=== PATIENT | male | born 1995 | race Caucasian/White ===

== ENCOUNTER 2016-12-27 16:14 | Observation (INO) | payer SELFPAY ==
[~2016-12-27] VITALS: Ht 188 cm; Wt 88.0 kg
[~2016-12-27 16:14] MED LIST: PROPOFOL 200 MG/20 ML AMP IV ONE
[2016-12-27 16:15] VITALS: BP 121/71; PULSE 117; RESP 15; TEMP 98.5; O2SAT 98
[2016-12-27 16:24] VITALS: PULSE 114; O2SAT 97
--- NOTE | 2016-12-27 17:52 | PD ---
HPI Chief Complaint: GI Complaint Time Seen by Provider: 17:39 Travel History International Travel<30 days: No Contact w/Intl Traveler<30days: No Traveled to known affect area: No History of Present Illness HPI This patient complains of inability to keep any food or liquid down for 3 days. Vomiting is intractable if he eats or drinks something. Between spells of eating or drinking he is not vomiting. He does have some a slight nausea and has some discomfort at the bottom of his esophagus. He is not sure specifically if he choked on some food and got it stuck. He has no diarrhea or abdominal pain. No medical history. Symptoms severity is moderate. No alleviating factors. PFSH Past Medical History Medical History: Denies Significant Hx Diminished Hearing: No Tetanus Vaccination: > 5 Years ?: Not Past Surgical History Tonsillectomy: Yes Social History Alcohol Use: No Tobacco Use: No Substance Use: No Allergies-Medications (Allergen,Severity, Reaction): Coded Allergies: azithromycin (Verified Allergy, Severe, Anaphylaxis, 12/27/16) Review of Systems General / Constitutional: No: Fever Eyes: No: Visual changes HENT: No: Headaches Cardiovascular: No: Chest Pain or Discomfort Respiratory: No: Shortness of Breath Gastrointestinal: Positive: Nausea, Vomiting, Dysphagia, No: Abdominal Pain Genitourinary: No: Dysuria Musculoskeletal: No: Pain Skin: No Rash Neurologic: No: Weakness Psychiatric: No: Depression Endocrine: No: Polydipsia Hematologic/Lymphatic: No: Easy Bruising Physical Exam Narrative GENERAL: Well-nourished, well-developed patient in no apparent distress. SKIN: Focused skin assessment reveals no rash and nodules. Skin is Warm and dry. HEAD: Atraumatic. Normocephalic. EYES: Pupils equal and round. No scleral icterus. No injection or drainage. ENT: No nasal bleeding or discharge. Mucous membranes pink and moist. NECK: Trachea midline. No JVD. CARDIOVASCULAR: Regular rate and rhythm. No murmur appreciated. RESPIRATORY: No accessory muscle use. Clear to auscultation. Breath sounds equal bilaterally. GASTROINTESTINAL: Abdomen soft, non-tender, nondistended. Hepatic and splenic margins not palpable. MUSCULOSKELETAL: No obvious deformities. No clubbing. No cyanosis. No edema. NEUROLOGICAL: Awake and alert. No obvious cranial nerve deficits. Motor grossly within normal limits. Normal speech. PSYCHIATRIC: Appropriate mood and affect; insight and judgment normal. Data Data Last Documented VS Vital Signs Date Time Temp Pulse Resp B/P (MAP) Pulse Ox O2 Delivery O2 Flow Rate FiO2 12/27/16 16:24 114 97 12/27/16 16:15 98.5 15 121/71 (88) Orders Orders Iv Access Insert/Monitor (12/27/16 17:50) Complete Blood Count With Diff (12/27/16 17:50) Basic Metabolic Panel (Bmp) (12/27/16 17:50) Sodium Chlor 0.9% 1000 Ml Inj (Ns 1000 M (12/27/16 18:00) Glucagon Inj (Glucagon Inj) (12/27/16 18:00) Chest, Single Ap (12/27/16 ) Abdomen, Flat & Upright (12/27/16 ) Diet Npo (12/27/16 Dinner) Consent (12/27/16 18:20) Admit Order (Ed Use Only) (12/27/16 19:15) Consult Gastroenterology (12/27/16 ) Labs Laboratory Tests Test 12/27/16 18:00 White Blood Count 6.6 TH/MM3 Red Blood Count 5.23 MIL/MM3 Hemoglobin 15.2 GM/DL Hematocrit 44.7 % Mean Corpuscular Volume 85.4 FL Mean Corpuscular Hemoglobin 29.1 PG Mean Corpuscular Hemoglobin Concent 34.0 % Red Cell Distribution Width 12.6 % Platelet Count 212 TH/MM3 Mean Platelet Volume 7.4 FL Neutrophils (%) (Auto) 65.0 % Lymphocytes (%) (Auto) 22.9 % Monocytes (%) (Auto) 9.1 % Eosinophils (%) (Auto) 2.1 % Basophils (%) (Auto) 0.9 % Neutrophils # (Auto) 4.3 TH/MM3 Lymphocytes # (Auto) 1.5 TH/MM3 Monocytes # (Auto) 0.6 TH/MM3 Eosinophils # (Auto) 0.1 TH/MM3 Basophils # (Auto) 0.1 TH/MM3 CBC Comment DIFF FINAL Differential Comment Blood Urea Nitrogen 18 MG/DL Creatinine 1.06 MG/DL Random Glucose 79 MG/DL Calcium Level 10.0 MG/DL Sodium Level 141 MEQ/L Potassium Level 3.7 MEQ/L Chloride Level 105 MEQ/L Carbon Dioxide Level 29.1 MEQ/L Anion Gap 7 MEQ/L Estimat Glomerular Filtration Rate 87 ML/MIN MDM Medical Decision Making Medical Screen Exam Complete: Yes Emergency Medical Condition: Yes Medical Record Reviewed: Yes Differential Diagnosis Esophageal obstruction, esophageal stricture, impacted food bolus Narrative Course I have reviewed the patient's electronic medical record. IV placed I gave him 1 mg IV glucose and but did not help CBC normal Metabolic profile normal I gave him a trial of drinking water here in the ER and even a quarter cup immediately vomited up multiple times. He appears to truly not be up to keep anything down at all. Seems to have acute esophageal obstruction I called and discussed with GI travel consultant Dr. Dave. She recommended I do x- rays of chest abdomen and pelvis and admit to the hospitalist and she will be a travel consultant and do endoscopy. She did not want to do on an emergent basis from the ER. I did call and discussed with hospitalist Dr. Chatman. She is going to discuss with the GI specialist to iron out the timing of this endoscopy. Diagnosis Primary Impression: Acute esophageal obstruction Additional Impression: Dysphagia Qualified Codes: R13.10 - Dysphagia, unspecified Admitting Information Admitting Physician Requests: Admit Joey Manuel MD Dec 27, 2016 17:52
[2016-12-27] MEDS ORDERED: GLUCAGON 1 MG/ML VIAL IV PUSH ONE (18:00)
[2016-12-27] MEDS ORDERED: SODIUM CHLOR 0.9% 1000 ML INJ 1,000 ML IV ONE (18:00)
--- NOTE | 2016-12-27 18:31 | RADRPT ---
EXAM DATE/TIME: 12/27/2016 18:24 [facility] COMPARISON: No previous studies available for comparison. INDICATIONS : Nausea and vomiting- abdominal pressure. MEDICAL HISTORY : None. SURGICAL HISTORY : None. ENCOUNTER: Initial ACUITY: 3 days PAIN SCORE: 0/10 LOCATION: Bilateral chest FINDINGS: A single view of the chest demonstrates the lungs to be symmetrically aerated without evidence of mas s, infiltrate or effusion. The cardiomediastinal contours are unremarkable. Osseous structures are intact. CONCLUSION: No acute disease. Lonnie Munoz MD on December 27, 2016 at 18:29 Board Certified Radiologist. This report was verified electronically.
--- NOTE | 2016-12-27 18:40 | RADRPT ---
EXAM DATE/TIME: 12/27/2016 18:19 [facility] COMPARISON: No previous studies available for comparison. INDICATIONS : Nausea and vomiting- Abdominal pressure. MEDICAL HISTORY : None. SURGICAL HISTORY : None. ENCOUNTER: Initial ACUITY: 3 days PAIN SCORE: 0/10 LOCATION: Abdomen. FINDINGS: Supine and upright views of the abdomen were performed. The abdominal bowel gas pattern is normal. No air fluid levels are seen. No abnormal masses, calcifications, or organomegaly is seen. The visu alized lower lungs are clear. No evidence of free intraperitoneal gas. The osseous structures are u nremarkable. CONCLUSION: Unremarkable abdomen. Lonnie Munoz MD on December 27, 2016 at 18:37 Board Certified Radiologist. This report was verified electronically.
[2016-12-27 18:52] LABS: AUTOMATED NEUTROPHIL # 4.3 TH/MM3 (1.8-7.7); BASOPHIL # 0.1 TH/MM3 (0-0.2); BASOPHIL % 0.9 % (0.0-2.0); EOSINOPHIL # 0.1 TH/MM3 (0-0.4); EOSINOPHIL % 2.1 % (0.0-4.0); HEMATOCRIT 44.7 % (39.0-51.0); HEMO FLAGS DIFF FINAL; LYMPH % 22.9 % (9.0-44.0); LYMPHOCYTE # 1.5 TH/MM3 (1.0-4.8); MEAN CELL VOLUME 85.4 FL (80.0-100.0); MEAN CORPUSCULAR HEMOGLOBIN 29.1 PG (27.0-34.0); MONO % 9.1 % (0.0-8.0); PLATELET COUNT 212 TH/MM3 (150-450); RED BLOOD COUNT 5.23 MIL/MM3 (4.50-5.90); RED CELL DISTRIBUTION WIDTH 12.6 % (11.6-17.2); WHITE BLOOD COUNT 6.6 TH/MM3 (4.0-11.0)
[2016-12-27 19:14] LABS: BICARBONATE 29.1 MEQ/L (21.0-32.0); POTASSIUM 3.7 MEQ/L (3.5-5.1)
[2016-12-27 19:45] VITALS: BP 115/77; PULSE 84; RESP 16; O2SAT 100
[2016-12-27] MEDS ORDERED: SODIUM CHLORIDE 0.9% FLUSH 10 ML FLUSH IV FLUSH PRN (20:45)
[2016-12-27] MEDS ORDERED: NALOXONE HCL 0.4 MG/ML AMP IV PRN (20:45)
[2016-12-27] MEDS ORDERED: ONDANSETRON HCL 4 MG/2 ML VIAL IV PUSH PRN (21:00)
[2016-12-27 21:12] LABS: INDIRECT BILIRUBIN 0.7 MG/DL (0.0-0.8); TOTAL BILIRUBIN ADULT 0.9 MG/DL (0.2-1.0)
[2016-12-27] MEDS: PANTOPRAZOLE SODIUM 40 MG VIAL IV PUSH SCH (22:00)
[2016-12-27] MEDS: SODIUM CHLORIDE 0.9% FLUSH 10 ML FLUSH IV FLUSH SCH (22:00)
[2016-12-27 22:45] VITALS: BP 128/78; PULSE 75; RESP 18; TEMP 98.5; O2SAT 98
[2016-12-27 23:39] VITALS: PULSE 84
[2016-12-28] VITALS (11 sets, daily range): BP systolic 111–123; BP diastolic 57–76; PULSE 67–96; RESP 17–18; TEMP 97.6–98.4; O2SAT 96–99
--- NOTE | 2016-12-28 03:31 | HHI.HP ---
[facility] No Primary Care Physician Admission Diagnosis acute esophageal obstruction Diagnoses: Travel History International Travel<30 Days: No Contact w/Intl Traveler <30 Da: No Traveled to Known Affected Are: No History of Present Illness History the patient with his mom at the bedside, ER physician communication, and review of medical records. Patient reported that he came to the hospital because he was having 2-3 days history of difficulty swallowing food. He reports that he does have a sore throat. He reports difficulty is for both solids and liquids. Denies fever. Denies any nausea or vomiting or diarrhea.. He states the food just comes up soon after he tried to ingested. He denies any blood in his stool or in his urine. Denies abdominal pains. Patient reports of associated lymph node swelling in his neck. Also reports that about 2 weeks ago, he has had sinus infection which he described as pain on palpation of his maxillary and frontal sinuses, and also had fever at that time. Also remembers that about 5 days ago, he thinks that his teeth fillings had come out. But did not ingest any of the fillings. States about 6 weeks ago, he has had some chest pain and heart ashley when he swallowed food. But it resolved within 1 or 2 days. Patient was also noted to have some rash in his right medial face. When asked about that, he stated that this rash came all of a sudden in the past 3 days. Reports it is not painful nor periodic. Mom stated that he has had similar lesions at his back about 6 days ago. This rash was pretty much all across his back, nontender, and nonvesicular. But was periodic though. Apart from the above, patient denies any other constitutional symptoms. Review of Systems Except as stated in HPI: all other systems reviewed are Neg Past Family Social History Past Medical History none Past Surgical History tonsilectomy Allergies: Coded Allergies: azithromycin (Verified Allergy, Severe, Anaphylaxis, 12/27/16) peanut (Verified Allergy, Unknown, 12/27/16) Family History father- colon cancer at 39yo Social History no smoking/ etoh abuse/ drug abuse Physical Exam Vital Signs Vital Signs Date Time Temp Pulse Resp B/P (MAP) Pulse Ox O2 Delivery O2 Flow Rate FiO2 12/27/16 22:47 12/27/16 22:45 98.5 75 18 128/78 (95) 98 12/27/16 19:45 84 16 115/77 (90) 100 Room Air 12/27/16 16:24 114 97 12/27/16 16:15 98.5 117 15 121/71 (88) 98 Physical Exam GENERAL: This is a well-nourished, well-developed patient, in no apparent distress. SKIN: No rashes, ecchymoses or lesions. Cool and dry. HEAD: Atraumatic. Normocephalic. No temporal or scalp tenderness. EYES: . No scleral icterus. No injection or drainage. ENT: Nose without bleeding, purulent drainage or septal hematoma. Throat without erythema, tonsillar hypertrophy or exudate. Uvula midline. Airway patent. NECK: Trachea midline. No JVD. right submandibular lymphadenopathy. Supple, nontender, no meningeal signs. CARDIOVASCULAR: Regular rate and rhythm without murmurs, gallops, or rubs. RESPIRATORY: Clear to auscultation. Breath sounds equal bilaterally. No wheezes , rales, or rhonchi. GASTROINTESTINAL: Abdomen soft, non-tender, nondistended. No guarding. MUSCULOSKELETAL: Extremities without clubbing, cyanosis, or edema. No calf tenderness. NEUROLOGICAL: Awake and alert.Motor and sensory grossly within normal limits. Normal speech. Laboratory Laboratory Tests Test 12/27/16 18:00 White Blood Count 6.6 Red Blood Count 5.23 Hemoglobin 15.2 Hematocrit 44.7 Mean Corpuscular Volume 85.4 Mean Corpuscular Hemoglobin 29.1 Mean Corpuscular Hemoglobin Concent 34.0 Red Cell Distribution Width 12.6 Platelet Count 212 Mean Platelet Volume 7.4 Neutrophils (%) (Auto) 65.0 Lymphocytes (%) (Auto) 22.9 Monocytes (%) (Auto) 9.1 Eosinophils (%) (Auto) 2.1 Basophils (%) (Auto) 0.9 Neutrophils # (Auto) 4.3 Lymphocytes # (Auto) 1.5 Monocytes # (Auto) 0.6 Eosinophils # (Auto) 0.1 Basophils # (Auto) 0.1 CBC Comment DIFF FINAL Differential Comment Blood Urea Nitrogen 18 Creatinine 1.06 Random Glucose 79 Calcium Level 10.0 Sodium Level 141 Potassium Level 3.7 Chloride Level 105 Carbon Dioxide Level 29.1 Anion Gap 7 Estimat Glomerular Filtration Rate 87 Total Bilirubin 0.9 Direct Bilirubin 0.2 Indirect Bilirubin 0.7 Aspartate Amino Transf (AST/SGOT) 13 Alanine Aminotransferase (ALT/SGPT) 23 Alkaline Phosphatase 60 Total Protein 7.7 Albumin 4.6 Result Diagram: 12/27/16 1800 12/27/16 1800 Imaging Last [address] 12/28/16 0000 Signed Impressions: Service Date/Time: Wednesday, December 28, 2016 03:52 - CONCLUSION: 1. Borderline enlarged right submandibular lymph node. No abnormal fluid collections to suggest abscess. No airway obstructing lesions or foreign bodies. Tree Fabian MD Chest X-Ray 12/27/16 0000 Signed Impressions: Service Date/Time: Tuesday, December 27, 2016 18:24 - CONCLUSION: No acute disease. Lonnie Munoz MD Abdomen X-Ray 12/27/16 0000 Signed Impressions: Service Date/Time: Tuesday, December 27, 2016 18:19 - CONCLUSION: Unremarkable abdomen. Lonnie Munoz MD Capkasiei VTE Risk Assessment Caprini VTE Risk Assessment: Mod/High Risk (score >= 2) Caprini Risk Assessment Model Point Value = 1 Point Value = 2 Point Value = 3 Point Value = 5 Age 41-60 Minor surgery BMI > 25 kg/m2 Swollen legs Varicose veins or History of unexplained or recurrent spontaneous Oral contraceptives or hormone replacement Sepsis (< 1 month) Serious lung disease, including pneumonia (< 1 month) Abnormal pulmonary function Acute myocardial infarction Congestive heart failure (< 1 month) History of inflammatory bowel disease Medical patient at bed rest Age 61-74 Arthroscopic surgery Major open surgery (> 45 min) Laparoscopic surgery (> 45 min) Malignancy Confined to bed (> 72 hours) Immobilizing plaster cast Central venous access Age >= 75 History of VTE Family history of VTE Factor V Leiden Prothrombin [id number] Lupus anticoagulant Anticardiolipin antibodies Elevated serum homocysteine Heparin-induced thrombocytopenia Other congenital or acquired thrombophilia Stroke (< 1 month) Elective arthroplasty Hip, pelvis, or leg fracture Acute spinal cord injury (< 1 month) Prophylaxis Regimen Total Risk Factor Score Risk Level Prophylaxis Regimen 0-1 Low Early ambulation 2 Moderate Order ONE of the following: *Sequential Compression Device (SCD) *Heparin 5000 units SQ BID 3-4 Higher Order ONE of the following medications: *Heparin 5000 units SQ TID *Enoxaparin/Lovenox 40 mg SQ daily (WT < 150 kg, CrCl > 30 mL/min) *Enoxaparin/Lovenox 30 mg SQ daily (WT < 150 kg, CrCl > 10-29 mL/min) *Enoxaparin/Lovenox 30 mg SQ BID (WT < 150 kg, CrCl > 30 mL/min) AND/OR *Sequential Compression Device (SCD) 5 or more Highest Order ONE of the following medications: *Heparin 5000 units SQ TID (Preferred with Epidurals) *Enoxaparin/Lovenox 40 mg SQ daily (WT < 150 kg, CrCl > 30 mL/min) *Enoxaparin/Lovenox 30 mg SQ daily (WT < 150 kg, CrCl > 10-29 mL/min) *Enoxaparin/Lovenox 30 mg SQ BID (WT < 150 kg, CrCl > 30 mL/min) AND *Sequential Compression Device (SCD) Assessment and Plan Problem List: (1) Dysphagia ICD Code: R13.10 - Dysphagia, unspecified Status: Acute (2) Acute esophageal obstruction ICD Code: K22.2 - Esophageal obstruction Status: Acute Assessment and Plan Impression: Dysphagia/odynophagia Cervical lymphadenopathy Facial rash Family history of colon cancer in father who at 39 years old Plan: Patient was seen by GI specialist in the emergency room. He is planned for EGD in a.m. Patient denies any foreign body ingestion. He has had some teeth filling coming out about 5 days ago or so. Doubt that this is the reason S patient is a very good historian. But would need to make sure there is no foreign body sensation fragments. Monitor for fever trends. Obtain CT neck to rule out abscess collection. Chest x-ray Personally reviewed. No evidence of pneumothorax/pleural effusion/esme failure. Resume home meds. DVT prophylaxiswith ambulation/SCD. Discussed Condition With patient,ER Problem Qualifiers (1) Dysphagia: Qualified Codes: R13.10 - Dysphagia, unspecified Clare Chatman MD Dec 28, 2016 03:31
[2016-12-28] MEDS ORDERED: IOHEXOL 350 MG/ML 10 ML VIAL (for RAD DIAG) IVCONTRAST ONE (03:56)
--- NOTE | 2016-12-28 04:11 | RADRPT ---
EXAM DATE/TIME: 12/28/2016 03:52 [facility] COMPARISON: No previous studies available for comparison. INDICATIONS : Right neck swelling past 3 days. IV CONTRAST: 70 cc Omnipaque 350 (iohexol) IV RADIATION DOSE: 11.45 CTDIvol (mGy) MEDICAL HISTORY : Substance abuse SURGICAL HISTORY : Tonsillectomy. ENCOUNTER: Initial ACUITY: 3 days PAIN SCALE: 5/10 LOCATION: Right neck TECHNIQUE: Volumetric scanning of the neck was performed. Using automated exposure control and adjustment of th e mA and/or kV according to patient size, radiation dose was kept as low as reasonably achievable to obtain optimal diagnostic quality images. DICOM format image data is available electronically for r eview and comparison. FINDINGS: There is a borderline enlarged right submandibular lymph node. No abnormal fluid collections to sugge st abscess. No airway obstructing lesions or foreign bodies. Visualized paranasal sinuses are clear. Mastoid air cells are clear. No acute bony abnormalities. Lung apices are clear. Thyroid unremarkable. CONCLUSION: 1. Borderline enlarged right submandibular lymph node. No abnormal fluid collections to suggest absce ss. No airway obstructing lesions or foreign bodies. Tree Fabian MD on December 28, 2016 at 4:07 Board Certified Radiologist. This report was verified electronically.
[2016-12-28 07:37] LABS: AUTOMATED NEUTROPHIL # 2.8 TH/MM3 (1.8-7.7); BASOPHIL % 0.9 % (0.0-2.0); EOSINOPHIL # 0.2 TH/MM3 (0-0.4); EOSINOPHIL % 3.2 % (0.0-4.0); HEMATOCRIT 40.6 % (39.0-51.0); HEMO FLAGS DIFF FINAL; LYMPH % 27.6 % (9.0-44.0); LYMPHOCYTE # 1.3 TH/MM3 (1.0-4.8); MEAN CELL VOLUME 85.4 FL (80.0-100.0); MEAN CORPUSCULAR HEMOGLOBIN 29.3 PG (27.0-34.0); MEAN CORPUSCULAR HGB CONC 34.3 % (32.0-36.0); MONO % 10.4 % (0.0-8.0); NEUT % 57.9 % (16.0-70.0); PLATELET COUNT 180 TH/MM3 (150-450); RED BLOOD COUNT 4.76 MIL/MM3 (4.50-5.90); RED CELL DISTRIBUTION WIDTH 12.5 % (11.6-17.2); WHITE BLOOD COUNT 4.8 TH/MM3 (4.0-11.0)
[2016-12-28 08:19] LABS: BICARBONATE 26.4 MEQ/L (21.0-32.0)
[2016-12-28] MEDS ORDERED: DO NOT ADM ANY ANTICOAGULANT DRUGS PRN (08:52)
--- NOTE | 2016-12-28 09:03 | GIPROC ---
[facility] [address] [facility]. [facility], [address] EGD PROCEDURE REPORT EXAM DATE: 12/28/2016 PATIENT NAME: Mario Jeronimo MR #: [id number] BIRTHDATE: 1995 ATTENDING: Mirtha Dave MD ORDER #: [id number] WAREHOUSE RECORD CLERK: Jordan Yung and Gisselle Landis STATUS: inpatient INDICATIONS: The patient is a 20 yr old male here for an EGD due to dysphagia PROCEDURE PERFORMED: EGD w/ biopsy EGD w/ dilation of esophagus via guidewire MEDICATIONS: None and Per Anesthesia. TOPICAL ANESTHETIC: none CONSENT: The patient understands the risks and benefits of the procedure and understands that these risks include, but are not limited to: sedation, allergic reaction, infection, perforation and/or bleeding. Alternative means of evaluation and treatment include, among others: physical exam, x-rays, and/or surgical intervention. The patient elects to proceed with this endoscopic procedure. medical equipment was checked for proper function. Hand hygiene and appropriate measures for infection prevention was taken. After the risks, benefits and alternatives of the procedure were thoroughly explained, Informed consent was verified, confirmed and timeout was successfully executed by the treatment team. The patient was anesthetized with topical anesthesia and the Pentax [id number] endoscope was introduced through the mouth and advanced to the second portion of the duodenum. Retroflexed views revealed no abnormalities The gastroscope was then slowly withdrawn and removed. Gastritis antrum-biopsy gastric nodule antrum-biopsy duodenitis second portion -biopsy esophagitis distal esophagus-biopsy esophagitis midesophagus-biopsy tight eg junction-s/p dilatation using dilators 16, 19. ADVERSE EVENTS: There were no complications. IMPRESSIONS: 1. Gastritis antrum-biopsy gastric nodule antrum-biopsy duodenitis second portion -biopsy esophagitis distal esophagus-biopsy esophagitis midesophagus-biopsy tight eg junction-s/p dilatation using dilators 16, 19 2. Retroflexed views revealed no abnormalities RECOMMENDATIONS: 1. Await biopsy results. Biopsy results will not be ready for 7-10 days. If you don't hear from us in two weeks, call our office for biopsy results. 2. Ba swallow to evalute for esophageal dysmotility start Acyclovir soft diet if still difficulty swallowing and above work-up negative will need esophageal manometry PATIENT CONDITION: stable DISPOSITION: Inpatient REPEAT EXAM: EGD pending biopsy results Mirtha Dave MD eSigned: Mirtha Dave MD 12/28/2016 9:03 AM cc: PATIENT NAME: KandaceMario MR#: [id number]
[2016-12-28] MEDS ORDERED: *morphine SULFATE 8 MG/ML PERIprocedure ONLY ONE (09:08)
[2016-12-28] MEDS ORDERED: HYDROmorphone HCL PF 1 MG/ML VIAL IV PUSH PRN (09:15)
[2016-12-28] MEDS: SODIUM CHLORIDE 0.9% FLUSH 10 ML FLUSH IV FLUSH SCH ×2 (09:20→21:15)
[2016-12-28] MEDS: ACYCLOVIR 5% CREAM 5 GM TUBE TOPICAL SCH ×4 (10:00→21:19)
--- NOTE | 2016-12-28 10:14 | RADRPT ---
EXAM DATE/TIME: 12/28/2016 09:57 [facility] COMPARISON: No previous studies available for comparison. INDICATIONS : Dysphagia, mid chest pain after esophageal dilatation. FLUORO TIME: 0.6 minutes IMAGE COUNT: 8 CONTRAST: 1. Gastrografin (Diatrizoate Meglumine and Diatrizoate Sodium) MEDICAL HISTORY : None. SURGICAL HISTORY : esophageal dilatation today. ENCOUNTER: Initial ACUITY: 4 - 6 days PAIN SCORE: 4/10 LOCATION: Bilateral neck FINDINGS: Wi Gastrografin swallow demonstrates that deglutition is grossly unremarkable. There is no evidence o f aspiration or penetration. The body of the esophagus is grossly unremarkable. There is no evidence of obstruction or leakage. The gastroesophageal junction appears unremarkable. CONCLUSION: Unremarkable Gastrografin examination of the esophagus. Scott Raymundo MD on December 28, 2016 at 10:11 Board Certified Radiologist. This report was verified electronically.
[2016-12-28] MEDS: PANTOPRAZOLE SODIUM 40 MG VIAL IV PUSH SCH ×2 (10:52→21:15)
[2016-12-28] MEDS ORDERED: ONDANSETRON HCL 4 MG/2 ML VIAL IV PUSH ONE (12:00)
[2016-12-28] MEDS ORDERED: DEXAMETHASONE SOD PHOS 4 MG/ML VIAL IV ONE (12:00)
[2016-12-28] MEDS: ACYCLOVIR 800 MG TAB PO SCH ×2 (14:26→21:15)
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
[2016-12-28] MEDS ORDERED: PROT40TA PO (18:08)
[2016-12-29 00:09] VITALS: PULSE 68
[2016-12-29 03:20] VITALS: BP 117/52; PULSE 62; RESP 17; TEMP 98.4; O2SAT 97
[2016-12-29 04:13] VITALS: PULSE 60
[2016-12-29] MEDS: ACYCLOVIR 800 MG TAB PO SCH ×2 (05:37→13:21)
[2016-12-29] MEDS: ACYCLOVIR 5% CREAM 5 GM TUBE TOPICAL SCH ×3 (05:38→13:12)
[2016-12-29 07:47] VITALS: PULSE 60
[2016-12-29 08:40] VITALS: BP 115/67; PULSE 63; RESP 16; TEMP 97.4; O2SAT 100
[2016-12-29] MEDS: PANTOPRAZOLE SODIUM 40 MG VIAL IV PUSH SCH (09:00)
[2016-12-29] MEDS: SODIUM CHLORIDE 0.9% FLUSH 10 ML FLUSH IV FLUSH SCH (09:00)
[2016-12-29 12:00] VITALS: BP 120/75; PULSE 74; RESP 18; TEMP 98.2; O2SAT 100
[2016-12-29] MEDS ORDERED: ACETAMINOPHEN 325 MG TAB PO PRN (12:00)
[2016-12-29] MEDS ORDERED: PANTOPRAZOLE SOD 40 MG DELAYED RELEASE TAB PO SCH (12:00)
--- NOTE | 2016-12-29 12:17 | HHI.GIFU ---
Subjective Remarks Resting in bed. States he is swallowing better. No n/v. States he tolerated soft diet. (Randa Herr Hayleymatthew STAPLETON) Objective Vitals I&O Vital Signs Date Time Temp Pulse Resp B/P (MAP) Pulse Ox O2 Delivery O2 Flow Rate FiO2 12/29/16 08:40 97.4 63 16 115/67 (83) 100 12/29/16 07:47 60 12/29/16 04:13 60 12/29/16 03:20 98.4 62 17 117/52 (73) 97 12/29/16 00:09 68 12/28/16 23:40 98.1 67 18 121/67 (85) 97 12/28/16 20:20 98.0 82 18 118/64 (82) 98 12/28/16 20:02 92 12/28/16 18:17 96 12/28/16 16:20 97.7 77 18 120/69 (86) 98 12/28/16 12:50 87 12/28/16 12:36 98.4 78 18 111/57 (75) 96 I/O 12/28/16 12/28/16 12/28/16 12/29/16 12/29/16 12/29/16 07:00 15:00 23:00 07:00 15:00 23:00 Intake Total 700 ml 860 ml 480 ml Balance 700 ml 860 ml 480 ml Intake Oral 860 ml 480 ml Other 700 ml Imaging Last Impressions Upper GI/Barium Swallow X-Ray 12/28/16 0000 Signed Impressions: Service Date/Time: Wednesday, December 28, 2016 09:57 - CONCLUSION: Unremarkable Gastrografin examination of the esophagus. Scott Raymundo MD Neck CT 12/28/16 0000 Signed Impressions: Service Date/Time: Wednesday, December 28, 2016 03:52 - CONCLUSION: 1. Borderline enlarged right submandibular lymph node. No abnormal fluid collections to suggest abscess. No airway obstructing lesions or foreign bodies. Tree Fabian MD Chest X-Ray 12/27/16 0000 Signed Impressions: Service Date/Time: Tuesday, December 27, 2016 18:24 - CONCLUSION: No acute disease. Lonnie Munoz MD Abdomen X-Ray 12/27/16 0000 Signed Impressions: Service Date/Time: Tuesday, December 27, 2016 18:19 - CONCLUSION: Unremarkable abdomen. Lonnie Munoz MD Physical Exam HEENT: Normocephalic; atraumatic; no jaundice. CHEST: CTA CARDIAC: RRR ABDOMEN: Soft, nondistended, nontender; no hepatosplenomegaly; bowel sounds are present in all four quadrants. EXTREMITIES: No clubbing, cyanosis, or edema. SKIN: Normal; no rash; no jaundice. GLASS TECHNOLOGIST: No focal deficits; alert and oriented times three. (Randa Herr) Assessment and Plan Plan ASSESSMENT: - Odynophagia. S/P EGD (12/28/16)-----> 1. Gastritis antrum-biopsy gastric nodule antrum-biopsy, duodenitis second portion -biopsy esophagitis distal esophagus-biopsy esophagitis midesophagus-biopsy tight eg junction-s/p dilatation using dilators 16, 19 2. Retroflexed views revealed no abnormalities. Pathology pending. Gastrografin (12/28/16)----> Unremarkable gastrografin examination of the esophagus. CT neck (12/28/16)----> Borderline enlarged right submandibular lymph node. No abnormal fluid to suggest abscess. No airway obstructing lesions or foreign bodies. PPI. Acyclovir. Tolerating diet. Symptoms improved. PLAN: - Soft diet - Await pathology - Change protonix 40mg po BID - Cont. Acyclovir until pathology back - FU MIRANDA 2 weeks - Supportive care - Further recommendations to follow based on results of above - Pt seen and examined by Dr. Dave and myself and this note is written on her behalf (Randa Herr) Physician Comments seen, examined agree with above fu office ok to ak home from gi point screening colonoscopy at age 27 unless symptoms -discussed with patient and his family (Mirtha Dave MD) Randa Herr Dec 29, 2016 12:17 Mirtha Dave MD Dec 30, 2016 05:39
--- NOTE | 2016-12-29 13:22 | PD.CONS ---
History of Present Illness Service Infectious Disease Consult Requested By Dr Terry Reason for Consult Evaluate patient for ?zoster Primary Care Physician No Primary Care Physician Diagnoses: History of Present Illness Patient seen and examined. Records reviewed. Patient is a 21-year-old male, presented to the hospital due to nausea and vomiting for 3 days. He said anything he swallows will come up, including water. He did not have any abdominal pain. When he finally presented to the hospital, he was already experiencing sore throat. He denies any odynophagia. Denies chest pain. He had 2 liquid stool yesterday, and 1 today. Denies having any diarrhea at home. Denies any fever chills or sweats. Patient about 5 days ago, was noted to have some kind of a rash in his back by his mom and it was itchy. It went away fairly quickly. The day he started having the vomiting, he noted a rash on the right side of his face which is not painful, and felt like it was some kind of insect bites. He also noted some swollen glands on the right side of his neck. Patient has no further vomiting since he presented to the emergency room. He was seen by GI, and had an upper endoscopy which showed evidence of gastritis, duodenitis, esophagitis and distal esophagus , with a tight GE junction. Biopsies were taken. She of the neck showed a borderline right submandibular lymph node. Gastrografin was normal. His WBC is normal. He is afebrile. Patient denies any previous history of fever blisters. Patient has been with his girlfriend in the last 3 years, and has a monogamous relationship. GI had recommended starting acyclovir which she is currently getting. Infectious disease consultation has been requested to evaluate the patient for possible zoster Review of Systems Constitutional: DENIES: Fever, Chills Eyes: COMPLAINS OF: Eye pain, DENIES: Vision loss Ears, nose, mouth, throat: COMPLAINS OF: Throat pain, DENIES: Vertigo, Nasal discharge, Oral lesions, Ear Pain, Sinus Pain Respiratory: DENIES: Cough, Sputum production, Shortness of breath Cardiovascular: DENIES: Chest pain, Palpitations Gastrointestinal: COMPLAINS OF: Diarrhea, Nausea, Vomiting, DENIES: Abdominal pain Genitourinary: DENIES: Urgency, Hematuria, Dysuria Integumentary: COMPLAINS OF: Rash Hematologic/lymphatic: COMPLAINS OF: Lymphadenopathy Neurologic: DENIES: Headache Psychiatric: DENIES: Confusion Past Family Social History Allergies: Coded Allergies: azithromycin (Verified Allergy, Severe, Anaphylaxis, 12/27/16) peanut (Verified Allergy, Unknown, 12/27/16) Past Medical History Dermatographia Previous episodes of recurrent strep throat Past Surgical History Tonsillectomy Active Ordered Medications Tylenol Acyclovir Dilaudid Zofran Protonix Acyclovir topical Family History Noncontributory to current ID problem Social History Denies smoking Denies alcohol abuse Denies illicit drugs Physical Exam Vital Signs Vital Signs Date Time Temp Pulse Resp B/P (MAP) Pulse Ox O2 Delivery O2 Flow Rate FiO2 12/29/16 12:00 98.2 74 18 120/75 (90) 100 12/29/16 08:40 97.4 63 16 115/67 (83) 100 12/29/16 07:47 60 12/29/16 04:13 60 12/29/16 03:20 98.4 62 17 117/52 (73) 97 12/29/16 00:09 68 12/28/16 23:40 98.1 67 18 121/67 (85) 97 12/28/16 20:20 98.0 82 18 118/64 (82) 98 12/28/16 20:02 92 12/28/16 18:17 96 12/28/16 16:20 97.7 77 18 120/69 (86) 98 Physical Exam GENERAL: Patient is a well-nourished, well-developed young male, awake and alert, not in respiratory distress. SKIN: Warm and dry. Has cluster of pink papules to the left of his nose, not pruritic HEAD: Atraumatic. Normocephalic. No temporal wasting, or tenderness. EYES: Mcintyre conjunctiva. No petechia or hemorrhage. Pupils equal, round and reactive to light. Extraocular movements full and intact. No scleral icterus. No injection or drainage. EARS, NOSE AND THROAT: Nose without bleeding or purulent nasal discharge. No sinus tenderness. Mucous membranes pink and moist. No oral lesions noted. No exudate. No oral thrush. NECK: Trachea midline. Supple and not tender, no meningeal signs Small LN in R submandibular area CARDIOVASCULAR: Regular rate and rhythm. No murmurs, rubs or gallops heard RESPIRATORY: Clear to auscultation. Breath sounds equal bilaterally. No rales , wheezing or rhonchi ABDOMEN: Soft, non-tender, nondistended. Bowel sounds present and normoactive. No guarding. No rebound. No organomegaly. EXTREMITIES: No clubbing, cyanosis, or edema.No joint effusion, has good ROM. No calf tenderness. Well perfused and warm. NEUROLOGICAL: Awake and alert. Cranial nerves grossly intact. Motor grossly within normal limits. PSYCHIATRIC: Normal affect, calm and cooperative. LINE: No evidence of infection Result Diagram: 12/28/16 0550 12/28/16 0550 Imaging RADIOLOGY STUDIES/FILMS REVIEWED Upper GI/Barium Swallow X-Ray 12/28/16 0000 Signed Impressions: Service Date/Time: Wednesday, December 28, 2016 09:57 - CONCLUSION: Unremarkable Gastrografin examination of the esophagus. Scott Raymundo MD Neck CT 12/28/16 0000 Signed Impressions: Service Date/Time: Wednesday, December 28, 2016 03:52 - CONCLUSION: 1. Borderline enlarged right submandibular lymph node. No abnormal fluid collections to suggest abscess. No airway obstructing lesions or foreign bodies. Tree Fabian MD Chest X-Ray 12/27/16 0000 Signed Impressions: Service Date/Time: Tuesday, December 27, 2016 18:24 - CONCLUSION: No acute disease. Lonnie Munoz MD Abdomen X-Ray 12/27/16 0000 Signed Impressions: Service Date/Time: Tuesday, December 27, 2016 18:19 - CONCLUSION: Unremarkable abdomen. Lonnie Munoz MD Assessment and Plan Assessment and Plan IMPRESSION GI complaints, has gastritis, duodenitis, distal esophagitis, etiol ?viral, ? meds Rash on R side of face, etiology? not typical herpetic - does not look like zoster lesion RECOMMENDATION Patient had biopsies done and report pending No intervention needed from ID standpoint GI has started acyclovir and will this up to them to continue or D/C - clinically does not seem to have clinical picture of herpes Thank you for this consultation I will be available if there are any other ID issue or question Discussed Condition With Explained recommendation to patient and sister AniachetanShawanda MD Dec 29, 2016 13:22
[2016-12-29] MEDS ORDERED: ACYC800T PO (15:37)
--- NOTE | 2016-12-29 17:17 | HHI.PR ---
Subjective Remarks Patient stated he is doing better now He has been seen by ID and GI EGD has been done Currently no nausea or vomiting, abdominal pain is better Cleared by GI and ID for discharge and follow up in [address] Jaz Olvera with him and his mother Objective Vitals Vital Signs Date Time Temp Pulse Resp B/P (MAP) Pulse Ox O2 Delivery O2 Flow Rate FiO2 12/29/16 12:00 98.2 74 18 120/75 (90) 100 12/29/16 08:40 97.4 63 16 115/67 (83) 100 12/29/16 07:47 60 12/29/16 04:13 60 12/29/16 03:20 98.4 62 17 117/52 (73) 97 12/29/16 00:09 68 12/28/16 23:40 98.1 67 18 121/67 (85) 97 12/28/16 20:20 98.0 82 18 118/64 (82) 98 12/28/16 20:02 92 12/28/16 18:17 96 I/O 12/28/16 12/28/16 12/28/16 12/29/16 12/29/16 12/29/16 07:00 15:00 23:00 07:00 15:00 23:00 Intake Total 700 ml 860 ml 480 ml Balance 700 ml 860 ml 480 ml Intake Oral 860 ml 480 ml Other 700 ml Result Diagram: 12/28/16 0550 12/28/16 0550 Objective Remarks GENERAL: This is a well-nourished, well-developed patient, in no apparent distress. SKIN: , warm and dry HEAD: Atraumatic. Normocephalic. EYES: Pupils equal round and reactive. Extraocular motions intact. No scleral icterus. ENT: Nose without bleeding, or drainage, Airway patent. NECK: Trachea midline. Supple CARDIOVASCULAR: Regular rate and rhythm without murmurs, gallops, or rubs. RESPIRATORY: Fair air entry bilaterally. No wheezes, rales, or rhonchi. GASTROINTESTINAL: Abdomen soft, non-tender, nondistended. Positive bowel sounds MUSCULOSKELETAL: Extremities without clubbing, cyanosis, or edema. Pedal pulses appreciated NEUROLOGICAL: Awake and alert. Moves all extremity. Normal speech.no focal neurological deficit A/P Problem List: (1) Dysphagia ICD Code: R13.10 - Dysphagia, unspecified Status: Acute (2) Acute esophageal obstruction ICD Code: K22.2 - Esophageal obstruction Status: Acute Assessment and Plan 21 years old male admitted with Dysphagia/odynophagia Cervical lymphadenopathy Facial rash Family history of colon cancer in father who at 39 years old Plan: GI consulted appreciated their input, status post EGD showed Gastritis antrum- biopsy gastric nodule antrum-biopsy, duodenitis second portion -biopsy esophagitis distal esophagus-biopsy esophagitis midesophagus-biopsy tight eg junction-s/p dilatation using dilators 16, 19 2. Retroflexed views revealed no abnormalities. Pathology pending. Gastrografin (12/28/16)----> Unremarkable gastrografin examination of the esophagus. CT neck (12/28/16)----> Borderline enlarged right submandibular lymph node. No abnormal fluid to suggest abscess. No airway obstructing lesions or foreign bodies. PPI. Acyclovir. Tolerating diet. Symptoms improved. Cleared by GI to be discharged on Protonix and acyclovir follow up in 2 weeks ID consulted for the facial rash, unlikely herpetic lesion however GI service with like to continue acyclovir until follow up with them as an outpatient possible herpetic esophagitis still not excluded Resume home meds. DVT prophylaxiswith ambulation/SCD. Discharge Planning Discharge patient to home Condition on discharge: Improved Regular Diet as tolerated Ad Mansi activity Rx written: Protonix and acyclovir Follow-up with primary care physician in one week, GI in 2 weeks Problem Qualifiers (1) Dysphagia: Qualified Codes: R13.10 - Dysphagia, unspecified Je Terry MD Dec 29, 2016 17:17
== END 2016-12-29 19:17 | disposition home or self-care (01) ==
LOC: NEPD 16:14 → NEDA 19:21 → UNDOADMIN 19:21 → NEDA 20:32 → NEPFCDU 22:01
PROVIDERS: ADMIT Hospitalist; ATTEND Hospitalist
DX: K22.2 Esophageal obstruction (principal); K29.80 Duodenitis without bleeding; K20.9 Esophagitis, unspecified; K29.70 Gastritis, unspecified, without bleeding; R21 Rash and other nonspecific skin eruption; R59.0 Localized enlarged lymph nodes; Z80.0 Family history of malignant neoplasm of digestive organs
CPT/HCPCS: 00740; 43239; 43248; 70491; 71010; 74020; 74220; 80048; 80076; 84443; 85025; 88305; 96361; 96374; 96375; 96376; 99285; C1769; C9113; G0378; J1100; J1610; J2270; J2405; J3010; J7030; Q9967